=== PATIENT | male | born 1980 | race Hispanic/Latino ===

== ENCOUNTER 2023-07-15 13:49 | Emergency (ER) | payer SELFPAY ==
[2023-07-15] MEDS ORDERED: Acetaminophen 325 MG TAB ONE (14:14)
== END 2023-07-15 14:38 | disposition home or self-care (01) ==
LOC: CSHERS 13:49
DX: K04.7 Periapical abscess without sinus (principal); K02.9 Dental caries, unspecified
CPT/HCPCS: 99282

== ENCOUNTER 2025-03-04 21:00 | Emergency (ER) | payer OTHER | END 2025-03-04 22:42 | disposition home or self-care (01) | LOC: CSHERS 21:00 | DX: R55 Syncope and collapse (principal); T44.6X5A Adverse effect of alpha-adrenoreceptor antagonists, initial encounter; T48.1X5A Adverse effect of skeletal muscle relaxants [neuromuscular blocking agents], initial encounter; E11.9 Type 2 diabetes mellitus without complications | CPT/HCPCS: 36416; 93005; 99284 ==